=== PATIENT | male | born 2000 | race Caucasian/White ===

== ENCOUNTER 2018-12-19 01:20 | Emergency (ER) | payer OTHER ==
[~2018-12-19] VITALS: Ht 175.3 cm; Wt 68.0 kg
[2018-12-19] MEDS ORDERED: KEFLEX500 M1 PO (01:40)
[2018-12-19 03:57] VITALS: BP 110/76
== END 2018-12-19 03:58 | disposition home or self-care (01) ==
LOC: ER 01:20
DX: S90.211A Contusion of right great toe with damage to nail, initial encounter (principal); X58.XXXA Exposure to other specified factors, initial encounter; Y93.89 Activity, other specified; Y92.89 Other specified places as the place of occurrence of the external cause; Y99.8 Other external cause status